=== PATIENT | female | born 1990 | race Caucasian/White ===

== ENCOUNTER 2024-07-11 11:16 | Inpatient (IN) | payer SELFPAY ==
[2024-07-11] VITALS (7 sets, daily range): BP systolic 114–126; BP diastolic 61–85; PULSE 75–88; RESP 14–18; TEMP 97.6–98.8; O2SAT 96–99
[~2024-07-11] VITALS: Ht 175.3 cm; Wt 71.7 kg
[2024-07-11] MEDS ORDERED: TRAZ150T80 PO (13:07)
[2024-07-11] MEDS ORDERED: GABA-1201 PO (13:07)
[2024-07-11] MEDS ORDERED: ALBU18HF12 IH (13:07)
[2024-07-11] MEDS ORDERED: HYDR50CA7 PO (13:07)
[2024-07-11] MEDS ORDERED: QUET300T2 PO (13:07)
[2024-07-11] MEDS ORDERED: PROP20TA18 PO (13:07)
[2024-07-11] MEDS ORDERED: ZOLPIDEM TARTRATE 10 MG TABLET PO PRN (13:15)
[2024-07-11 13:35] LABS: GLUCOMETER DEV NAME(LOC) POC.BV; POC SARS-COV2 AG, FIA NEGATIVE (NEGATIVE)
[2024-07-11] MEDS ORDERED: INFLUENZA VIRUS VACCINE TVS (6MO+) 2024-25/PF 45 MCG/0.5 ML SYRINGE IM. ONE (16:00)
[2024-07-11] MEDS: LORazepam 2 MG TABLET PO PRN (20:47)
[2024-07-12 02:15] VITALS: RESP 16; TEMP 97.1
[2024-07-12 06:15] VITALS: BP 113/85; PULSE 77; RESP 18; TEMP 97.1; O2SAT 99
[2024-07-12] MEDS ORDERED: LORazepam 2 MG TABLET PO PRN (07:00)
[2024-07-12 08:29] LABS: ALCOHOL, BLOOD (SERUM) < 3 mg/dL (0-10)
[2024-07-12 08:31] LABS: BASOPHILS % (AUTO) 1.2 % (0.0-2.0); EOSINOPHILS % (AUTO) 4.2 % (1.0-6.0); HEMATOCRIT 38.7 % (36-46); HEMOGLOBIN 13.1 g/dL (12.0-16.0); LYMPHOCYTES # (AUTO) 1.5 K/uL (1.0-4.8); LYMPHOCYTES % (AUTO) 36.4 % (22.0-44.0); MEAN CORPUSCULAR HEMOGLOBIN 34.5 pg (26.0-34.0); MEAN CORPUSCULAR HGB CONC 33.8 G/dL (31.0-37.0); MEAN CORPUSCULAR VOLUME 102 fL (80-100); MONOCYTES # (AUTO) 0.5 K/uL (0.1-1.0); MONOCYTES % (AUTO) 13.2 % (2.0-9.0); NEUTROPHILS # (AUTO) 1.9 K/uL (1.8-7.7); PLATELET COUNT (AUTO) 149 K/uL (150-450); RED BLOOD CELL COUNT(AUTO) 3.78 MIL/uL (4.00-5.20); WHITE BLOOD COUNT (AUTO) 4.1 K/uL (4.5-11.0)
[2024-07-12 08:53] VITALS: BP 114/92; PULSE 90; RESP 17; TEMP 98; O2SAT 98
[2024-07-12 08:56] LABS: ALANINE AMINOTRANSFERASE 108 U/L (12-78); ALBUMIN 3.1 g/dL (3.4-5.0); ALKALINE PHOSPHATASE 69 U/L (46-116); ANION GAP 8 mmol/L (8-16); ASPARTATE AMINOTRANSFERASE 87 U/L (15-37); BILIRUBIN,TOTAL 0.6 mg/dL (0.1-1.0); CALCIUM, TOTAL 8.6 mg/dL (8.8-10.5); CARBON DIOXIDE 32 mmol/L (22-29); CHLORIDE 101 mmol/L (98-107); CHOL/HDL RATIO 1.9 (3.9-5.7); CHOLESTEROL 175 mg/dL (131-200); CREATININE 0.73 mg/dL (0.60-1.30); FREE T4 (FREE THYROXINE) 1.39 ng/dL (0.76-1.46); GLOMERULAR FILTR. RATE CALC > 60 mL/min (>60); GLUCOSE,RANDOM 96 mg/dL (70-110); HCG,QUANTITATIVE < 1 mIU/mL (0-6); HDL CHOLESTEROL 90 mg/dL (40-60); LDL CHOL (CALC.) 74 mg/dL (0-130); SODIUM SERUM 141 mmol/L (136-145); T4 (THYROXINE) 9.5 mcg/dL (4.7-13.3); THYROID STIMULATING HORMONE 0.87 uIU/mL (0.36-3.74); TOTAL PROTEIN, SERUM 6.6 g/dL (6.4-8.2); TRIGLYCERIDES 56 mg/dL (15-150); UREA NITROGEN, BLOOD 7 mg/dL (7-18)
[2024-07-12 09:00] LABS: POTASSIUM 2.7 mmol/L (3.5-5.1)
[2024-07-12 09:33] LABS: RBC MORPHOLOGY COMMENT ABNORMAL RBC MORPH
[2024-07-12] MEDS: LORazepam 2 MG TABLET PO SCH (09:36)
[2024-07-12] MEDS ORDERED: OMEPRAZOLE 20 MG CAPSULE PO PRN (11:00)
[2024-07-12] MEDS ORDERED: MAGNESIUM HYDROXIDE SUSPENSION 30 ML UDCUP PO PRN (11:00)
[2024-07-12] MEDS ORDERED: PETROLATUM,WHITE 28 GM JELLY TP PRN (11:00)
[2024-07-12] MEDS ORDERED: DOCUSATE SODIUM 100 MG CAPSULE PO PRN (11:00)
[2024-07-12] MEDS ORDERED: ALBUTEROL SULFATE HFA 90 MCG/PUFF 8 GM INHALER IH PRN (11:00)
[2024-07-12] MEDS ORDERED: ACETAMINOPHEN 325 MG TABLET PO PRN (11:00)
[2024-07-12] MEDS ORDERED: ONDANSETRON 4 MG TABLET PO PRN (11:00)
[2024-07-12] MEDS ORDERED: BACITRACIN 28 GM OINTMENT TP PRN (11:00)
[2024-07-12] MEDS ORDERED: LOPERAMIDE HCL 2 MG CAPSULE PO PRN (11:00)
[2024-07-12] MEDS ORDERED: IBUPROFEN 600 MG TABLET PO PRN (11:00)
[2024-07-12] MEDS ORDERED: CloNIDine HCL 0.1 MG TABLET PO PRN (11:00)
[2024-07-12] MEDS ORDERED: MAG HYDROX/ALUMINUM HYD/SIMETH ES 30 ML SUSPENSION UDCUP PO PRN (11:00)
[2024-07-12] MEDS ORDERED: BENZOCAINE/MENTHOL LOZENGE PO PRN (11:00)
[2024-07-12] MEDS: POTASSIUM CHLORIDE 20 MEQ ER TABLET PO SCH (12:41)
[2024-07-12 20:52] VITALS: BP 104/69; PULSE 100; RESP 18; TEMP 96.8; O2SAT 98
[2024-07-12] MEDS: TraZODone HCL 100 MG TABLET PO SCH (21:14)
[2024-07-13 08:31] VITALS: BP 112/77; PULSE 60; RESP 18; TEMP 98.3; O2SAT 98
[2024-07-13 08:55] LABS: ALANINE AMINOTRANSFERASE 109 U/L (12-78); ALBUMIN 3.1 g/dL (3.4-5.0); ANION GAP 9 mmol/L (8-16); ASPARTATE AMINOTRANSFERASE 78 U/L (15-37); CALCIUM, TOTAL 8.6 mg/dL (8.8-10.5); CARBON DIOXIDE 29 mmol/L (22-29); CHLORIDE 102 mmol/L (98-107); CREATININE 0.67 mg/dL (0.60-1.30); GLOMERULAR FILTR. RATE CALC > 60 mL/min (>60); GLUCOSE,RANDOM 90 mg/dL (70-110); POTASSIUM 3.9 mmol/L (3.5-5.1); SODIUM SERUM 140 mmol/L (136-145); UREA NITROGEN, BLOOD 9 mg/dL (7-18)
[2024-07-13 09:09] LABS: ALKALINE PHOSPHATASE 64 U/L (46-116); BILIRUBIN,TOTAL 0.5 mg/dL (0.1-1.0); TOTAL PROTEIN, SERUM 6.7 g/dL (6.4-8.2)
[2024-07-13] MEDS: HALOPERIDOL 5 MG TABLET PO PRN (15:58)
[2024-07-13 20:19] VITALS: BP 122/85; PULSE 109; RESP 18; TEMP 97.7; O2SAT 97
[2024-07-14] MEDS ORDERED: LORazepam 1 MG TABLET PO PRN (07:00)
[2024-07-14] MEDS ORDERED: LORazepam 1 MG TABLET PO SCH (09:00)
[2024-07-14 10:04] VITALS: RESP 18
[2024-07-14 10:28] VITALS: BP 128/89; PULSE 112; RESP 18; TEMP 98; O2SAT 97
[2024-07-15] MEDS ORDERED: LORazepam 1 MG TABLET PO PRN (07:00)
== END 2024-07-14 09:55 | disposition home or self-care (01) | DRG 881 ==
LOC: B2S 13:07
PROVIDERS: ADMIT Psychiatry & Neurology Psychiatry; ATTEND Psychiatry & Neurology Psychiatry
DX: F32.9 Major depressive disorder, single episode, unspecified (principal); I10 Essential (primary) hypertension; E87.6 Hypokalemia; J45.909 Unspecified asthma, uncomplicated; F10.10 Alcohol abuse, uncomplicated; K59.00 Constipation, unspecified; Z20.822 Contact with and (suspected) exposure to COVID-19; F41.9 Anxiety disorder, unspecified; G47.00 Insomnia, unspecified; Z88.1 Allergy status to other antibiotic agents
CPT/HCPCS: 80053; 80061; 83036; 84436; 84439; 84443; 84702; 85025; 86592; G0480